=== PATIENT | female | born 1990 | race Caucasian/White ===

== ENCOUNTER 2019-04-21 11:43 | Outpatient (CLI) | payer BC ==
[2019-04-21 12:27] LABS: APPEARANCE,URINE SLIGHTLY-CLOUDY; BILIRUBIN,URINE NEGATIVE (NEGATIVE); COLOR,URINE YELLOW; GLUCOSE, URINE NEGATIVE (NEGATIVE); KETONES,URINE NEGATIVE (NEGATIVE); LEUKOCYTE ESTERASE,URINE LARGE (NEGATIVE); NITRITE,URINE NEGATIVE (NEGATIVE); PROTEIN,URINE NEGATIVE (NEGATIVE); UROBILINOGEN,URINE NEGATIVE mg/dL (<2.0)
[2019-04-21 12:53] LABS: URINE AMPHETAMINES SCREEN NEGATIVE; URINE BARBITURATES SCREEN NEGATIVE; URINE BENZODIAZEPINES SCREEN NEGATIVE; URINE COCAINE SCREEN NEGATIVE; URINE MARIJUANA (THC) SCREEN NEGATIVE; URINE METHADONE SCREEN NEGATIVE; URINE PHENCYCLIDINE SCREEN NEGATIVE
== END 2019-04-21 14:37 | disposition home or self-care (01) ==
LOC: LC 11:43
PROVIDERS: ATTEND Obstetrics & Gynecology
PROC: 4A1HXCZ Monitoring of Products of Conception, Cardiac Rate, External Approach (ICD-10-PCS; principal; 2019-04-21)
DX: Z34.93 Encounter for supervision of normal pregnancy, unspecified, third trimester (principal); Z3A.39 39 weeks gestation of pregnancy
CPT/HCPCS: 80307; 81005

== ENCOUNTER 2019-04-21 20:27 | Inpatient (IN) | payer BC ==
[2019-04-21] MEDS ORDERED: OXYTOCIN 10 UNIT/ML VIAL ONE (20:52)
[2019-04-21] MEDS ORDERED: MISOPROSTOL 0.2 MG TABLET ONE (20:52)
[2019-04-21] MEDS ORDERED: LIDOCAINE 1% INJ-PF (10 MG/ML) 30 ML SDV ONE (20:52)
[2019-04-21] MEDS ORDERED: OXYTOCIN/NORMAL SALINE 0 UNIT/0 ML RTUINJ ONE (20:52)
[2019-04-21 21:13] LABS: ABSOLUTE LYMPHOCYTES (AUTO) 1.4 10^3/uL (0.5-4.7); ABSOLUTE MONOCYTES (AUTO) 0.6 10^3/uL (0.1-1.4); ABSOLUTE NEUT (AUTO) 14.8 10^3/uL (1.7-8.2); BASOPHILS % (AUTO) 0.1 % (0-2); HEMATOCRIT 34.6 % (36.0-47.0); LYMPHOCYTES % (AUTO) 8.4 % (13-45); MEAN CORPUSCULAR HEMOGLOBIN 30.9 pg (27.0-33.4); MEAN CORPUSCULAR HGB CONC 34.7 g/dL (32.0-36.0); MEAN CORPUSCULAR VOLUME 89 fl (80-97); MONOCYTES % (AUTO) 3.6 % (3-13); PLATELET COUNT 248 10^3/uL (150-450); RED BLOOD COUNT 3.89 10^6/uL (3.72-5.28); RED CELL DISTRIBUTION WIDTH 13.1 % (11.5-14.0); SEGMENTED NEUTROPHILS % (AUTO) 87.9 % (42-78); TOTAL CELLS COUNTED % (AUTO) 100 %; WHITE BLOOD COUNT 16.8 10^3/uL (4.0-10.5)
--- NOTE | 2019-04-21 22:17 | Admission Physical ---
Datetime Report Generated by CPN: 04/21/2019 22:17 CURRENT ADMISSION Chief Complaint: Uterine Contractions Indication for Induction: Not Applicable Admit Impression : Term, Intrauterine ; Active Labor; Intact Membranes Admit Plan: Admit to Unit; Initiate Labor Protocol ALLERGIES Medication Allergies: Yes Medication Allergies: Penicillins (04/21/2019) Latex: No Latex Allergies OBSTETRICAL HISTORY EDC: 04/23/2019 00:00 : 1 Para: 0 Gestational Diabetes: Yes Rh Sensitization: No Incompetent Cervix: No Infertility: No ART Treatment: No Uterine Anomaly: No IUGR: No Hx Previous C/S: No Macrosomia: No Hx Loss/Stillborn: No PIH: No Hx : No Placenta Previa/Abruption: No Depression/PP Depression: No PTL/PROM: No Post Hemorrhage: No Current Procedures: Ultrasound Obstetrical History Comments: G1-Current SEE RECORDS Alcohol: No Marijuana : No Cocaine: No Other Illicit Drugs: No Cigarettes: Never Smoker. [id number] MEDICAL HISTORY Diabetes: Yes Diabetes Type: Gestational Diabetes Blood Transfusion: No Pulmonary Disease (Asthma, TB): No Breast Disease: No Hypertension: No Rate Supervisor Surgery: No Heart Disease: No Hosp/Surgery: No Autoimmune Disorder: No Anesthetic Complications: No Kidney Disease: No Abnormal Pap Smear: No Neuro/Epilepsy: No Psychiatric Disorders: No Other Medical Diseases: No Hepatitis/Liver Disease: No Significant Family History: No Varicosities/Phlebitis: No Thyroid Dysfunction: No INFECTIOUS HISTORY Gonorrhea: No Genital Herpes: No Chlamydia: No Tuberculosis: No Syphilis: No Hepatitis: No HIV/AIDS Exposure: No Rash or Viral Illness: No HPV: No PHYSICAL EXAM General: Normal HEENT: Normal Neurologic: Normal Thyroid: Normal Heart: Normal Lungs: Normal Breast: Normal Back: Normal Abdomen: Normal Genitourinary Exam: Normal Extremities: Normal DTRs: Normal Pelvic Type: Adequate Vital Signs: Reviewed; Within Normal Limits VAGINAL EXAM Dilatation: 9 Effacement: 100 Station: 0 Contraction Comments: q 2-3 min MEMBRANES Membranes: Intact FETUS A EGA: 39.5 Monitoring: External US FHR- Baseline: 120s Accelerations: 15X15 FHR Category: Category I Admit Comment: w/ IUP@ 39-5/7 wks, presents to L_D c/o contractions. She was evaluated at L_D earlier this morning and her cervix was 2 cm. She states that she labored all day. She is GDM--diet controlled. She is GBS Neg. Her cervix on arrival was 9 cm. PLANS FOR LABOR AND DELIVERY Labor and Delivery: None Pain Management: Epidural Feeding Preference: Breast Benefit of Breast Feed Discussed: Yes Circumcision: N/A INFORMED CONSENT Signature: with User ID: [email or web address]
[2019-04-21] MEDS ORDERED: DIBUCAINE 1% OINTMENT 56 GM TP PRN (22:22)
[2019-04-21] MEDS ORDERED: DIPH/PERTUSS(ACELL)/TETANUS VAC/PF 0.5 ML SYR (>=10YO) IM PRN (22:22)
[2019-04-21] MEDS ORDERED: ACETAMINOPHEN WITH CODEINE #3 TABLET PO PRN ×2 (22:22)
[2019-04-21] MEDS ORDERED: BENZOCAINE/MENTHOL AEROSOL SPRAY 56 ML TOP PRN (22:22)
[2019-04-21] MEDS ORDERED: OXYTOCIN/NORMAL SALINE 20 UNIT/1,000 ML RTUINJ IV PRN (22:22)
[2019-04-21] MEDS ORDERED: ZOLPIDEM TARTRATE 5 MG TABLET PO PRN (22:22)
--- NOTE | 2019-04-22 00:04 | Delivery Summary ---
Del Sum A-C Datetime Report Generated by CPN: 04/22/2019 00:04 DELIVERY PERSONNEL DELIVERY PERSONNEL: [id number] Delivery Doctor:: Iwona Springer MD Labor and Delivery Nurse:: Natanael Pedroza RN Labor and Delivery Nurse:: Gretel Burgos RN Nursery Nurse:: Delia Monique RN Nursery Nurse:: Mariaa Oakley RN Bad Credit Collector/COMPUTER DISCOVERY TEACHER: Elin Ulrich, ST MATERNAL INFORMATION Delivery Anesthesia: None Medications After Delivery: Pitocin 10 Units IM Estimated Blood Loss (ml): 400 Delivery QBL: 400 Delivery QBL Comment: 400 ml Maternal Complications: Precipitous Labor (<3hrs) Provider Comments: of a viable female at 2126 w/ an TEJA presentation; APGARS 8, 9; 2nd deg vag and 1st deg periurethral lacs LABOR SUMMARY EDC: 04/23/2019 00:00 No. Babies in Womb: 1 Attempted: No Labor Anesthesia: None LABOR INFORMATION Onset of Labor: 04/21/2019 20:32 Complete Dilatation: 04/21/2019 21:02 Oxytocin: N/A Group B Beta Strep: positive Antibiotics # of Doses: 0 Steroids Given: None Reason Steroids Not Administered: Not Applicable MEMBRANES Membranes Rupture Method: Spontaneous Rupture of Membranes: 04/21/2019 20:40 Length of Rupture (hr): 0.77 Amniotic Fluid Color: Clear Amniotic Fluid Amount: Scant STAGES OF LABOR Stage 1 hr: 0 Stage 1 min: 30 Stage 2 hr: 0 Stage 2 min: 24 Stage 3 hr: 0 Stage 3 min: 5 Total Time in Labor hr: 0 Total Time in Labor min: 59 VAGINAL DELIVERY Episiotomy: None Laceration #1: Vaginal Laceration Extension #1: Second Degree Laceration #2: Vaginal Laceration Extension #2: Second Degree Laceration #3: Periurethral Laceration Extension #3: First Degree Laceration Repair: Yes Laceration Repair Note: 2 nd Degree vaginal lacs repaired w/ 2-0 Vicryl; bilateral 1st degree periurethral lacs repaired w/ 3-0 Chromic Sponge Count Correct: Yes Sharps Count Correct: Yes CSECTION DELIVERY Primary Indication: N/A Secondary Indication: N/A CSection Urgency: n/a CSection Incidence: N/A Labor: N/A Elective: N/A CSection Incision: N/A BABY A INFORMATION Infant Delivery Date/Time: 04/21/2019 21:26 Method of Delivery: Vaginal Born in Route : No : N/A Forceps: N/A Vacuum Extraction: N/A Shoulder Dystocia : No PRESENTATION/POSITION BABY A Presentation: Cephalic Cephalic Presentation: Vertex Vertex Position: Left Occipital Anterior Breech Presentation: N/A PLACENTA INFORMATION BABY A Placenta Delivery Time : 04/21/2019 21:31 Placenta Method of Delivery: Spontaneous Placenta Status: Delivered SCORES BABY A Heart Rate 1 min: >100 bpm Resp Effort 1 min: Good Cry Reflex Irritability 1 min: Cough or Sneeze or Pulls Away Muscle Tone 1 min: Active Motion Color 1 min: Blue/Pale Resuscitation Effort 1 min: Tactile Stimulation SCORE 1 MIN: 8 Heart Rate 5 min: >100 bpm Resp Effort 5 min: Good Cry Reflex Irritability 5 min: Cough or Sneeze or Pulls Away Muscle Tone 5 min: Active Motion Color 5 min: Body [place], Extremities Blue Resuscitation Effort 5 min: Tactile Stimulation SCORE 5 MIN: 9 INFORMATION BABY A Gestational Age at Delivery: 39.5 Gestational Status: Full Term- 39- 40.6 Weeks Outcome : Liveborn Infant Condition : Stable Sex: Female IDENTIFICATION BABY A Verification Date/Time: 04/21/2019 21:33 ID Band Number: [id number] Mother's Name Verified: Yes Infant RN Verifying Infant: , RN Additional Verifying Personnel: H[employer], TRANSPLANT NURSE WEIGHT/LENGTH BABY A Birthweight (gm): 2793 Weight (lb): 6 Weight (oz): 3 Length (in): 19.25 Infant Length (cm): 48.90 CORD INFORMATION BABY A No. Cord Vessels: 3 Nuchal Cord : N/A Cord Blood Taken: Yes-For Storage (Mom's Blood type +) ASSESSMENT BABY A Complications: None Physical Findings at Delivery: Within Normal Limits Infant Respirations: Appears Normal Skin to Skin: Yes Chief Engineer Research/ALS Called : No Care By: M.Monique, RN Transferred To: Remains with Mother BABY B INFORMATION : N/A SIGNATURES Signature: with User ID: [email or web address]
[2019-04-22] MEDS: IBUPROFEN 800 MG TABLET PO SCH ×3 (06:14→21:17)
[2019-04-22 06:35] LABS: HEMATOCRIT 31.8 % (36.0-47.0); HEMOGLOBIN 11.2 g/dL (12.0-15.5); MEAN CORPUSCULAR HEMOGLOBIN 31.1 pg (27.0-33.4); MEAN CORPUSCULAR HGB CONC 35.2 g/dL (32.0-36.0); MEAN CORPUSCULAR VOLUME 88 fl (80-97); PLATELET COUNT 230 10^3/uL (150-450); RED CELL DISTRIBUTION WIDTH 13.3 % (11.5-14.0); WHITE BLOOD COUNT 15.4 10^3/uL (4.0-10.5)
[2019-04-22] MEDS: FERROUS SULFATE 325 MG TABLET PO SCH ×2 (09:27→18:27)
[2019-04-22] MEDS: DOCUSATE SODIUM 100 MG CAPSULE PO SCH ×2 (09:27→18:27)
[2019-04-22] MEDS: PRENATAL VITAMIN W DHA CAPSULE PO SCH (09:27)
[2019-04-22] MEDS: SENNOSIDES/DOCUSATE 8.6-50 MG 1 EACH TABLET PO SCH (09:27)
--- NOTE | 2019-04-22 10:30 | PDOC PROGRESS REPORT ---
Subjective-OB Progress Note for:: 04/22/19 Physical Exam (OB) Vital Signs: Temp Pulse Resp BP Pulse Ox 98.3 F 123 H 18 125/77 99 04/22/19 07:46 04/22/19 07:46 04/22/19 07:46 04/22/19 07:46 04/22/19 07:46 Intake & Output 04/21/19 04/22/19 04/23/19 06:59 06:59 06:59 Intake Total 240 Balance 240 Weight 95.2 kg - PIH/Pre-Eclampsia Headache: Absent Epigastric Pain: No Visual Changes: No - Lochia Lochia Amount: Small 10-25 ml Lochia Color: Rubra/Red - Abdomen Description: Soft Hernia Present: No Bowel Sounds: Normoactive Flatus Presence: Absent Stool: No Objective-Diagnostic Laboratory: 04/22/19 06:18 04/21/19 04/21/19 04/22/19 21:00 21:00 06:18 WBC 16.8 H 15.4 H RBC 3.89 3.60 L Hgb 12.0 11.2 L Hct 34.6 L 31.8 L MCV 89 88 MCH 30.9 31.1 MCHC 34.7 35.2 RDW 13.1 13.3 Plt Count 248 230 Seg Neutrophils % 87.9 H Blood Type A POSITIVE Antibody Screen NEGATIVE
[2019-04-23] MEDS: IBUPROFEN 800 MG TABLET PO SCH ×2 (05:50→14:30)
[2019-04-23 08:32] VITALS: BP 110/65
--- NOTE | 2019-04-23 08:50 | PDOC PROGRESS REPORT ---
Subjective-OB Progress Note for:: 04/23/19 Subjective: Doing well, ready to go home, voiding, scant lochia, Physical Exam (OB) Vital Signs: Temp Pulse Resp BP Pulse Ox 97.9 F 97 14 110/65 99 04/23/19 07:55 04/23/19 07:55 04/23/19 07:55 04/23/19 07:55 04/23/19 07:55 Intake & Output 04/22/19 04/23/19 04/24/19 06:59 06:59 06:59 Intake Total 240 Balance 240 Weight 95.2 kg - PIH/Pre-Eclampsia Clonus: Negative Headache: Absent Epigastric Pain: No Visual Changes: No - Lochia Lochia Amount: Small 10-25 ml Lochia Color: Rubra/Red - Abdomen Description: Soft Hernia Present: No Fundal Description: Firm, Midline Fundal Height: u/u - u/2 Objective-Diagnostic Laboratory: 04/22/19 06:18 Assessment and Plan(PN) - Assessment and Plan (1) Gestational diabetes Qualifiers: Gestational diabetes mellitus control: diet-controlled Is this a current diagnosis for this admission?: Yes (2) Positive GBS test Is this a current diagnosis for this admission?: Yes (3) Delivery normal Is this a current diagnosis for this admission?: Yes - Time Spent with Patient Time with patient: Less than 15 minutes Medications reviewed and adjusted accordingly: Yes - Disposition Anticipated Discharge: Home Within: within 24 hours
--- NOTE | 2019-04-23 08:55 | PDOC DISCHARGE SUMMARY ---
Impression - Admit/DC Date/PCP Admission Date/Primary Care Provider: 04/21/19 20:52 BERTHA BETNACOURT MD Discharge Date: 04/23/19 - Discharge Diagnosis (1) Gestational diabetes Is this a current diagnosis for this admission?: Yes (2) Positive GBS test Is this a current diagnosis for this admission?: Yes (3) Delivery normal Is this a current diagnosis for this admission?: Yes - Additional Information Resuscitation Status: Full Code Discharge Diet: As Tolerated, Regular Discharge Activity: Activity As Tolerated, No Lifting Over 10 Pounds, No Lifting/Push/Pulling, Pelvic Rest Referrals: BERTHA BETANCOURT MD [Primary Care Provider] - (RTC 4 weeks) Home Medications: 93/Iron/Folate 9/Dha [Tristart Dha Softgel] 1 tab PO DAILY 04/21/19 HPI Gestational Age: 39,5 Reason(s) for Admission: Onset of Labor, PROM, Gestional Diabetes, Group B Strep Positive Procedures: NST, Ultrasound Intrapartum Procedure(s): Spontaneous Vaginal Delivery Complication(s): Laceration-Vaginal, Laceration-Periurethral Laceration-Degree: 2nd - precipitous labor, 12/18, female Hospital Course Hospital Course: routine Results Laboratory Results: WBC 15.4 10^3/uL (4.0-10.5) H 04/22/19 06:18 RBC 3.60 10^6/uL (3.72-5.28) L 04/22/19 06:18 Hgb 11.2 g/dL (12.0-15.5) L 04/22/19 06:18 Hct 31.8 % (36.0-47.0) L 04/22/19 06:18 MCV 88 fl (80-97) 04/22/19 06:18 MCH 31.1 pg (27.0-33.4) 04/22/19 06:18 MCHC 35.2 g/dL (32.0-36.0) 04/22/19 06:18 RDW 13.3 % (11.5-14.0) 04/22/19 06:18 Plt Count 230 10^3/uL (150-450) 04/22/19 06:18 Lymph % (Auto) 8.4 % (13-45) L 04/21/19 21:00 [place] % (Auto) 3.6 % (3-13) 04/21/19 21:00 Eos % (Auto) 0.0 % (0-6) 04/21/19 21:00 Baso % (Auto) 0.1 % (0-2) 04/21/19 21:00 Absolute Neuts (auto) 14.8 10^3/uL (1.7-8.2) H 04/21/19 21:00 Absolute Lymphs (auto) 1.4 10^3/uL (0.5-4.7) 04/21/19 21:00 Absolute Monos (auto) 0.6 10^3/uL (0.1-1.4) 04/21/19 21:00 Absolute Eos (auto) 0.0 10^3/uL (0.0-0.6) 04/21/19 21:00 Absolute Basos (auto) 0.0 10^3/uL (0.0-0.2) 04/21/19 21:00 Seg Neutrophils % 87.9 % (42-78) H 04/21/19 21:00 RPR NONREACTIVE (NONREACTIVE) 04/21/19 21:00 Blood Type A POSITIVE 04/21/19 21:00 Antibody Screen NEGATIVE 04/21/19 21:00 Plan Health Concerns: anemia, take iron Plan of Treatment: iron, PNV's Goals: home with baby, no complications Time Spent: Less than 30 Minutes
[2019-04-23] MEDS: FERROUS SULFATE 325 MG TABLET PO SCH (10:25)
[2019-04-23] MEDS: PRENATAL VITAMIN W DHA CAPSULE PO SCH (10:27)
[2019-04-23] MEDS: SENNOSIDES/DOCUSATE 8.6-50 MG 1 EACH TABLET PO SCH (10:27)
== END 2019-04-23 14:45 | disposition home or self-care (01) | DRG 807 ==
LOC: LC 20:27 → LR 20:52 → 2S 04-22 00:20
PROVIDERS: ADMIT Obstetrics & Gynecology; ATTEND Obstetrics & Gynecology
PROC: 10E0XZZ Delivery of Products of Conception, External Approach (ICD-10-PCS; principal; 2019-04-21)
PROC: 0KQM0ZZ Repair Perineum Muscle, Open Approach (ICD-10-PCS; 2019-04-21)
PROC: 0UQMXZZ Repair Vulva, External Approach (ICD-10-PCS; 2019-04-21)
DX: O24.420 Gestational diabetes mellitus in childbirth, diet controlled (principal); Z37.0 Single live birth; O62.3 Precipitate labor; O70.0 First degree perineal laceration during delivery; O71.82 Other specified trauma to perineum and vulva; O99.824 Streptococcus B carrier state complicating childbirth; Z3A.39 39 weeks gestation of pregnancy; Z88.0 Allergy status to penicillin
CPT/HCPCS: 36415; 85025; 85027; 86592; 86850; 86900; 86901; J2590; J3490